=== PATIENT | male | born 1970 | race Two or more races ===

== ENCOUNTER 2020-06-28 18:57 | Observation (INO) | payer OTHER ==
[2020-06-28] MEDS ORDERED: NITROGLYCERIN SL TABS 0.4 MG TAB SUBLINGUAL STA ×3 (19:05)
[2020-06-28] MEDS ORDERED: ASPIRIN 81 MG PO STA (19:05)
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
[2020-06-28] MEDS ORDERED: LORazepam 2 MG/ML INJ IV STA (19:51)
[2020-06-28 19:54] LABS: Basophils # (A) 0.1 k/uL (0-0.2); Basophils % (A) 1 %; Eosinophils # (A) 0.2 k/uL (0-0.7); Eosinophils % (A) 3 %; HCT 36.2 % (39.0-53.0); Lymphocytes # (A) 1.8 k/uL (1.0-4.8); Lymphocytes % (A) 36 %; MCH 32.2 pg (25.0-35.0); MCHC 33.1 g/dL (31.0-37.0); MCV 97.4 fL (80.0-100.0); Mean Platelet Volume 8.4; Monocytes # (A) 0.3 k/uL (0-1.0); Monocytes % (A) 6 %; Neutrophils # (A) 2.5 k/uL (1.3-7.7); Neutrophils % (A) 51 %; Platelet Count 187 k/uL (150-450); RBC 3.72 m/uL (4.30-5.90); RDW 15.4 % (11.5-15.5)
[2020-06-28 20:36] LABS: ALT 27 U/L (4-49); AST 34 U/L (17-59); African American GFR (CKD) >90 (>60 ml/min/1.73 sqM); Alkaline Phosphatase 52 U/L (38-126); Amylase 52 U/L (30-110); Anion Gap 5 mmol/L; Blood Urea Nitrogen 8 mg/dL (9-20); Carbon Dioxide 27 mmol/L (22-30); Chloride 104 mmol/L (98-107); Glucose 103 mg/dL (74-99); Lipase 78 U/L (23-300); Magnesium 2.4 mg/dL (1.6-2.3); Non-African American GFR(CKD) >90 (>60 ml/min/1.73 sqM); Potassium 4.1 mmol/L (3.5-5.1); Sodium 136 mmol/L (137-145); Total Bilirubin 0.5 mg/dL (0.2-1.3)
[2020-06-28 20:37] LABS: D-Dimer <0.17 mg/L FEU (<0.60); INR 0.9 (<1.2); Partial Thromboplastin Time 22.6 sec (22.0-30.0)
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
[2020-06-28] MEDS ORDERED: NITROGLYCERIN SL TABS 0.4 MG TAB SUBLINGUAL PRN (21:56)
[2020-06-28] MEDS ORDERED: traZODone HCL 50 MG TAB PO ONE (22:25)
[2020-06-29] MEDS: NITROGLYCERIN OINT 1 INCH/GM PACKET TOPICAL SCH ×2 (00:25→03:35)
[2020-06-29 01:39] VITALS: RESP 16
[2020-06-29 05:10] LABS: Cholesterol 189 mg/dL (<200); HDL Cholesterol 64 mg/dL (40-60); LDL Cholesterol,Calculated 95 mg/dL (0-99); Triglycerides 149 mg/dL (<150)
[2020-06-29 08:10] VITALS: BP 151/89; PULSE 67; TEMP 98.6
[2020-06-29] MEDS ORDERED: ONDANSETRON ODT 8 MG TAB.RAPDIS PO PRN (08:38)
[2020-06-29] MEDS ORDERED: ACETAMINOPHEN TAB 325 MG TAB PO PRN (08:38)
[2020-06-29] MEDS ORDERED: ASPIRIN 325 MG TAB PO SCH (09:00)
[2020-06-29] MEDS ORDERED: PANTOPRAZOLE 40 MG TABLET PO SCH (09:00)
[2020-06-29] MEDS ORDERED: METOPROLOL SUCCINATE (ER) 25 MG TAB.ER.24H PO SCH (09:00)
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
--- NOTE | 2020-06-29 09:18 | P.DS ---
Providers Date of admission: 06/28/20 21:56 Attending physician: Manjit Hebert Consults: 06/28/20 21:56 Consult Physician Urgent Consulting Provider: Mustapha Rios Consult Reason/Comments: cp Do you want consulting provider notified?: Yes Primary care physician: Richie Montero [facility] Course: Please refer to [facility] for further details Plan - Discharge Summary Discharge Rx Participant: Yes New Discharge Prescriptions: Continue Chlorpheniramine Maleate [Chlor-Trimeton] 4 mg PO Q4H PRN PRN Reason: Allergy Symptoms Ibuprofen [Motrin] 600 mg PO Q6HR PRN PRN Reason: Pain Acetaminophen [Tylenol 8 Hour] 650 mg PO Q4H PRN PRN Reason: Pain Ondansetron Odt [Zofran ODT] 8 mg PO Q8H PRN PRN Reason: Nausea And Vomiting Pantoprazole Sodium [Protonix] 40 mg PO DAILY Metoprolol Succinate (ER) [Toprol XL] 25 mg PO DAILY Calcium/Magnesium/Zinc [Jehmshi-Icqadhhiz-Kciu Tablet] 2 tab PO TID PRN PRN Reason: CRAMPING Discharge Medication List Acetaminophen [Tylenol 8 Hour] 650 mg PO Q4H PRN 06/28/20 [History] Calcium/Magnesium/Zinc [Zykgxdm-Owflczryw-Imkv Tablet] 2 tab PO TID PRN 06/28/20 [History] Chlorpheniramine Maleate [Chlor-Trimeton] 4 mg PO Q4H PRN 06/28/20 [History] Ibuprofen [Motrin] 600 mg PO Q6HR PRN 06/28/20 [History] Metoprolol Succinate (ER) [Toprol XL] 25 mg PO DAILY 06/28/20 [History] Ondansetron Odt [Zofran ODT] 8 mg PO Q8H PRN 06/28/20 [History] Pantoprazole Sodium [Protonix] 40 mg PO DAILY 06/28/20 [History] Follow up Appointment(s)/Referral(s): Richie Montero MD [Primary Care Provider] - 3 Days Patient Instructions/Handouts: Chest Pain (DC) Discharge Disposition: OTHER INSTITUTION NOT DEFINED
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
== END 2020-06-29 10:11 ==
LOC: EC 18:57 → 6NMEDSUR 21:56 → UNDOADMOB 21:56
PROVIDERS: ADMIT Hospitalist; ATTEND Hospitalist
DX: R07.89 Other chest pain (principal); F10.10 Alcohol abuse, uncomplicated; F17.210 Nicotine dependence, cigarettes, uncomplicated; F41.9 Anxiety disorder, unspecified; K21.9 Gastro-esophageal reflux disease without esophagitis; Z79.899 Other long term (current) drug therapy; Z20.822 Contact with and (suspected) exposure to COVID-19
CPT/HCPCS: 93005 ×2; 96374; 99285; 36415; 85379; 80061; 80053; 82150; 83690; 83735; 84484 ×2; 85025; 85610; 85730; 87635; 71046; G0378 ×2; J2060

== ENCOUNTER 2020-09-23 21:21 | Emergency (ER) | payer OTHER ==
[2020-09-23 21:29] VITALS: TEMP 98.1
[2020-09-23] MEDS ORDERED: SODIUM CHLORIDE 0.9% 1,000 ML IV STA (21:44)
[2020-09-23] MEDS ORDERED: KETOROLAC 15 MG/ML 1 ML VIAL IVP STA (21:52)
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
[2020-09-23 22:10] LABS: Basophils # (A) 0.1 k/uL (0-0.2); Basophils % (A) 1 %; Eosinophils # (A) 0.2 k/uL (0-0.7); Eosinophils % (A) 3 %; HGB 11.9 gm/dL (13.0-17.5); Lymphocytes # (A) 2.7 k/uL (1.0-4.8); Lymphocytes % (A) 49 %; MCH 32.8 pg (25.0-35.0); MCV 99.4 fL (80.0-100.0); Macrocytosis Slight; Monocytes # (A) 0.4 k/uL (0-1.0); Monocytes % (A) 7 %; Neutrophils % (A) 37 %; Platelet Count 231 k/uL (150-450); RBC 3.62 m/uL (4.30-5.90); RDW 14.8 % (11.5-15.5); WBC 5.4 k/uL (3.8-10.6)
[2020-09-23] MEDS ORDERED: LORazepam 2 MG/ML INJ IV STA (22:32)
[2020-09-23 22:33] LABS: ALT 28 U/L (4-49); AST 30 U/L (17-59); African American GFR (CKD) >90 (>60 ml/min/1.73 sqM); Albumin 3.8 g/dL (3.5-5.0); Alkaline Phosphatase 72 U/L (38-126); Anion Gap 6 mmol/L; Blood Urea Nitrogen 9 mg/dL (9-20); Calcium 9.1 mg/dL (8.4-10.2); Carbon Dioxide 27 mmol/L (22-30); Chloride 105 mmol/L (98-107); Glucose 96 mg/dL (74-99); Non-African American GFR(CKD) >90 (>60 ml/min/1.73 sqM); Potassium 4.2 mmol/L (3.5-5.1); Sodium 138 mmol/L (137-145); Total Bilirubin 0.4 mg/dL (0.2-1.3); Total Protein 6.6 g/dL (6.3-8.2)
[2020-09-23 23:05] LABS: Appearance,Urine Clear (Clear); Bilirubin,Urine Negative (Negative); Blood,Urine Negative (Negative); Color,Urine Yellow; Glucose,Urine (UA) Negative (Negative); Ketones,Urine Negative (Negative); Leukocyte Esterase,Urine Negative (Negative); Nitrite,Urine Negative (Negative); Protein,Urine Trace (Negative); Specific Gravity,Urine 1.027 (1.001-1.035)
[2020-09-23 23:19] VITALS: BP 133/88; PULSE 78; RESP 16
== END 2020-09-23 23:19 | disposition home or self-care (01) ==
LOC: EC 21:21
DX: F41.9 Anxiety disorder, unspecified (principal); R07.9 Chest pain, unspecified; R25.2 Cramp and spasm; M54.30 Sciatica, unspecified side; K21.9 Gastro-esophageal reflux disease without esophagitis; I10 Essential (primary) hypertension; F17.200 Nicotine dependence, unspecified, uncomplicated
CPT/HCPCS: 36415; 93005; 80053; 83735; 84484; 85025; 81003; 99285; 96374; 96375; J2060; J1885